=== PATIENT | female | born 1935 | race Caucasian/White ===

== ENCOUNTER → 2016-10-16 | Outpatient (CLI) | payer MEDICARE | END | disposition home or self-care (01) | LOC: PCVCCLINIC 10:00 | PROVIDERS: ATTEND Internal Medicine | DX: I25.10 Atherosclerotic heart disease of native coronary artery without angina pectoris (principal); E78.00 Pure hypercholesterolemia, unspecified; I10 Essential (primary) hypertension; I44.7 Left bundle-branch block, unspecified; I65.29 Occlusion and stenosis of unspecified carotid artery | CPT/HCPCS: 80061; 93005; G0463 ==

== ENCOUNTER → 2017-04-23 | Outpatient (CLI) | payer MEDICARE, OTHER | END | disposition home or self-care (01) | LOC: PCVCCLINIC 11:21 | PROVIDERS: ATTEND Internal Medicine | DX: I25.10 Atherosclerotic heart disease of native coronary artery without angina pectoris (principal); I10 Essential (primary) hypertension; I44.7 Left bundle-branch block, unspecified; I65.23 Occlusion and stenosis of bilateral carotid arteries; R94.31 Abnormal electrocardiogram [ECG] [EKG]; E78.5 Hyperlipidemia, unspecified; Z79.82 Long term (current) use of aspirin; Z79.899 Other long term (current) drug therapy | CPT/HCPCS: 80061; 93005; G0463 ==

== ENCOUNTER → 2017-10-22 | Outpatient (CLI) | payer MEDICARE, OTHER | END | disposition home or self-care (01) | LOC: PCVCCLINIC 13:02 | DX: I25.10 Atherosclerotic heart disease of native coronary artery without angina pectoris (principal); I44.7 Left bundle-branch block, unspecified; I10 Essential (primary) hypertension; I65.23 Occlusion and stenosis of bilateral carotid arteries; E78.5 Hyperlipidemia, unspecified; R94.31 Abnormal electrocardiogram [ECG] [EKG]; Z79.82 Long term (current) use of aspirin; Z79.899 Other long term (current) drug therapy | CPT/HCPCS: 80061; 93005; G0463 ==

== ENCOUNTER → 2018-04-29 | Outpatient (CLI) | payer MEDICARE, OTHER | END | disposition home or self-care (01) | LOC: PCVCCLINIC 13:24 | PROVIDERS: ATTEND Internal Medicine | DX: I25.10 Atherosclerotic heart disease of native coronary artery without angina pectoris (principal); I10 Essential (primary) hypertension; I44.7 Left bundle-branch block, unspecified; E78.5 Hyperlipidemia, unspecified; I65.23 Occlusion and stenosis of bilateral carotid arteries; Z79.82 Long term (current) use of aspirin; Z79.899 Other long term (current) drug therapy | CPT/HCPCS: 80061; 93005; G0463 ==

== ENCOUNTER → 2018-11-11 | Outpatient (CLI) | payer MEDICARE, OTHER ==
--- NOTE | 2018-11-11 10:20 | PCVCIMAG ---
APPROVED REPORT Study performed: 11/11/2018 09:08:40 EXAM: Comprehensive 2D, Doppler, and color-flow Echocardiogram Patient Location: Echo lab Status: routine BSA: 1.79 HR: 61 bpmBP: 122/72 mmHg Rhythm: NSR,LBBB Other Information Study Quality: Adequate Risk Factors: Cardiac Risk Factors: HTN, Hyperlipidemia Indications CAD 2D Dimensions IVSd: 12.27 (7-11mm)LVOT Diam: 21.00 (18-24mm) LVDd: 36.11 mm PWd: 12.51 (7-11mm)Ascending Ao: 34.12 (22-36mm) LVDs: 25.09 (25-40mm) Left Atrium: 37.44 (27-40mm) Aortic Root: 30.07 mm LV Single Plane 4CH: 51.49 % LV Single Plane 2CH: 64.87 % Biplane EF: 57.5 % Volumes Left Atrial Volume (Systole) Single Plane 4CH: 43.72 mLSingle Plane 2CH: 58.41 mL LA ESV Index: 29.00 mL/m2 Aortic Valve AoV Peak Arnoldo.: 2.32 m/s AO Peak Gr.: 21.47 mmHgLVOT Max P.19 mmHg AO Mean Gr.: 12.09 mmHgLVOT Mean P.56 mmHg AO V2 Mean: 1.65 m/sLVOT Max V: 1.02 m/s AO V2 VTI: 50.90 cmLVOT Mean V: 0.77 m/s SABRINA (VTI): 1.47 [id number] V1 VTI: 21.46 cm SABRINA Vmax: 1.54 cm2 SV (LVOT): 74.58 mL Mitral Valve E/A Ratio: 0.5 MV Decel. Time: 310.94 ms MV E Max Arnoldo.: 0.51 m/s MV A Arnoldo.: 1.03 m/s IVRT: 69.20 ms TDI E/Lateral E': 10.20E/Medial E': 12.75 Medial E' Arnoldo.: 0.04 m/s Lateral E' Arnoldo.: 0.05 m/s Pulmonary Valve PV Peak Arnoldo.: 1.08 m/sPV Peak Gr.: 4.67 mmHg Pulmonary Vein P Vein S: 0.57 m/sP Vein A: 0.28 m/s P Vein D: 0.45 m/sP Vein A Dur.: 103.8 msec P Vein S/D Ratio: 1.27 Tricuspid Valve TR Peak Arnoldo.: 2.65 m/sRAP Estimate: 7.00 mmHg TR Peak Gr.: 28.01 mmHg PA Pressure: 35.00 mmHg Left Ventricle The left ventricle is normal size. There is normal LV segmental wall motion. Mild concentric left ventricular hypertrophy. Left ventricular systolic function is normal. The left ventricular ejection fraction is within the normal range. Discordant septal motion. LVEF is 50-55%. Mild diastolic dysfunction is present (impaired relaxation pattern). Right Ventricle The right ventricle is normal size. The right ventricular systolic function is normal. Atria The left atrium size is normal. The right atrium size is normal. Aortic Valve Aortic valve is calcified, trileaflet. No aortic regurgitation is present. The peak aortic valve gradient is 21 mmHg and the mean gradient is 12 mmHg. Aortic valve area is 1.5 cm2. Mild aortic stenosis. Mitral Valve Mild mitral annular calcification. Trace mitral regurgitation. No evidence of mitral valve stenosis. Tricuspid Valve The tricuspid valve is normal in structure. Moderate tricuspid regurgitation. Pulmonary artery pressure is 35 mmHg. Pulmonic Valve The pulmonary valve is normal in structure. Mild pulmonic regurgitation. Great Vessels The aortic root is normal in size. IVC is normal in size and collapses >50% with inspiration. Pericardium There is no pericardial effusion. <Conclusion> Left ventricular systolic function is normal. Discordant septal motion. LVEF 50-55%. Mild diastolic dysfunction is present (impaired relaxation pattern). Aortic valve is calcified, trileaflet; mild stenosis, no insufficiency. The peak aortic valve gradient is 21 mmHg and the mean gradient is 12 mmHg. Aortic valve area is 1.5 cm2. Mild aortic stenosis. Mild mitral annular calcification. Trace mitral regurgitation. Moderate tricuspid regurgitation. Pulmonary artery pressure of 35 mmHg. There is no pericardial effusion.
--- NOTE | 2018-11-11 11:11 | PCVCIMAG ---
APPROVED REPORT Indications Stenosis Risk Factors Hypertension: Hyperlipidemia Doppler Spectral Velocity Analysis PSV / EDVPSV / EDV ECA (R) 76 / 5 cm/sECA (L) 82 / 6 cm/s dICA (R) 66 / 15 cm/sdICA (L) 53 / 13 cm/s Rivka (R) 79 / 11 cm/smICA (L) 202 / 46 cm/s pICA (R) 130 / 23 cm/spICA (L) 116 / 37 cm/s Bulb (R) 51 / 6 cm/sBulb (L) 45 / 10 cm/s dCCA (R) 66 / 10 cm/sdCCA (L) 69 / 14 cm/s mCCA (R) 86 / 9 cm/smCCA (L) 73 / 14 cm/s Vert (R) 43 / 8 cm/sVert (L) 48 / 13 cm/s ICA/CCA 1.51ICA/CCA 2.78 Basic Measurements Blood Pressure: Pulses: Right Left RightLeft Brachial(Sitting) 122/14sfWj255/72mmHgTemporal Real Time B-Mode Imaging Vert. (R)AntegradeVert. (L)Antegrade Findings The right carotid bulb has moderate calcified plaque. The right proximal internal carotid artery shows 40-50% stenosis. The right common carotid artery shows no significant stenosis. The right external carotid artery shows no significant stenosis. The left carotid bulb has moderately severe calcified plaque. The left proximal internal carotid artery shows 60-70% stenosis. The left common carotid artery shows no significant stenosis. The left external carotid artery shows no significant stenosis. Conclusion 1. Right internal carotid artery stenosis (40-50%). 2. Left internal carotid artery stenosis (60-70%). 3. Antegrade vertebral flow. Similar to a study dated April 2017.
== END | disposition home or self-care (01) ==
LOC: PCVCIMAG 08:50
PROVIDERS: ATTEND Internal Medicine
DX: I08.3 Combined rheumatic disorders of mitral, aortic and tricuspid valves (principal); I25.10 Atherosclerotic heart disease of native coronary artery without angina pectoris; I10 Essential (primary) hypertension; I44.7 Left bundle-branch block, unspecified; I65.23 Occlusion and stenosis of bilateral carotid arteries; E78.5 Hyperlipidemia, unspecified; E78.00 Pure hypercholesterolemia, unspecified; Z79.82 Long term (current) use of aspirin
CPT/HCPCS: 36415; 80061; 93005; 93306; 93880; G0463